=== PATIENT | male | born 1950 | race Caucasian/White ===

== ENCOUNTER 2019-08-03 17:05 | Emergency (ER) | payer MEDICARE, BC ==
[~2019-08-03] VITALS: Ht 170.2 cm; Wt 98.0 kg
[2019-08-03] MEDS ORDERED: LIDOCAINE 1%-EPI 1:100,000 20 ML VIAL ONE (17:31)
[2019-08-03] MEDS ORDERED: LIDOCAINE HCL/EPINEPHRINE/PF 30 ML VIAL TP ONE (18:00)
[2019-08-03] MEDS ORDERED: CEPHALEXIN MONOHYDRATE 500 MG CAPSULE PO ONE ×4 (18:48→21:00)
--- NOTE | 2019-08-03 19:05 | NUR ---
Endorsed to JB Edmond Shannen
--- NOTE | 2019-08-03 19:08 | NUR ---
RECEIVED REPORT FROM SHIRA SERRA FOR EDIL, PT IS AAOX4, NOT IN RESPIRATORY DISTRESS, V/S STABLE, KEPT RESTED AND COMFORTABLE, WILL CONTINUE TO MONITOR.
--- NOTE | 2019-08-03 19:10 | NUR ---
GLASS MAKER AT BEDSIDE FOR XRAY.
--- NOTE | 2019-08-03 19:35 | NUR ---
AT BEDSIDE FOR SUTURING.
[2019-08-03 20:11] VITALS: BP 129/71
--- NOTE | 2019-08-03 20:30 | NUR ---
WOUND CLEANING AND DRESSING DONE.
--- NOTE | 2019-08-03 21:02 | NUR ---
Patient discharged to home in stable condition. Written and verbal after care instructions given. Patient verbalizes understanding of instruction.
== END 2019-08-03 21:03 | disposition home or self-care (01) ==
LOC: ER 17:12
DX: S41.111A Laceration without foreign body of right upper arm, initial encounter (principal); I10 Essential (primary) hypertension; E78.00 Pure hypercholesterolemia, unspecified; Z98.890 Other specified postprocedural states; W25.XXXA Contact with sharp glass, initial encounter; Y93.89 Activity, other specified; Y92.89 Other specified places as the place of occurrence of the external cause; Y99.8 Other external cause status
CPT/HCPCS: 12002; 73090; 99283; A6403 ×4; J3490